=== PATIENT | male | born 1990 | race Caucasian/White ===

== ENCOUNTER 2021-07-26 09:23 | Outpatient (RCR) | payer BC, SELFPAY ==
--- NOTE | 2021-07-26 09:00 | BH.SGPN.GN ---
Behaviors/Verbalizations/Mental Status: []Client alert and oriented, neatly dressed and groomed. Eye contact good. Motor activity appropriate. Speech within normal limits. Affect congruent, mood anxious. Thoughts linear, logical, no signs of hallucinations or delusions. Reviewed client?s symptom tracker, no risk for suicidal ideation, plan, or intent as of 07/26/21 Client Response/Progress/Benefit: []Client responded well to session, attentive and receptive to feedback. Client's first day of IOP tx and he reports feeling overwhelmed this morning. Client stated I want to do well here but I'm nervous...just trying to take it all in. Client shared he came to IOP tx because of his anxiety and depression. Client reports he has been struggling at home, work, and in his relationships. Client stated I have so many good things in life, so there's no reason to feel this way. [employer] and peers helped combat stigma and offered emotional support. Client reports he would like to reduce his racing thoughts and gain healthy coping skills. Appeared to benefit from group support. Will continue IOP tx to prevent decompensation, gain healthy coping skills, and improve daily functioning. Narrative Note: []
--- NOTE | 2021-07-26 09:30 | BH.COMM_ITS ---
Communication Note - Communication with Client Communication Note: Met with patient to complete initial paperwork. No sig nificant changes since pre-admission assessment. Completed [place] Suicide screening with low risk. Discussed case and symptoms with Dr. Acevedo with plan to admit to IOP level of care with dx of MDD F33.2 and ALLEGRA F41.1
--- NOTE | 2021-07-26 10:10 | BH.SGPN.GN ---
Behaviors/Verbalizations/Mental Status: [] Eye contact is good. Motor activity is appropriate. Appearance is casual. Speech is Appropriate. Mood is anxious. Affect is congruent. Thoughts are linear and logical. No evidence of psychosis. Client Response/Progress/Benefit: [] Pt was an active participant in group discussion and activity. Attentive during psychoeducation. Provided appropriate feedback. Group had an interactive discussion on defining pitfalls in the context of mental health. Group agreed with definition of events that impact progress or things that get you off track. Pt along with peers identified common mental health pitfalls which included; past experiences, current/past environments, poor communication, anxiety, any type of conflict, and feeling discomfort. Pt was able to identify the pitfalls and challenges that occurred during the experiential activity and worked with peers to identify strategies to overcome pitfalls. Able to make parallels between activity and ways to identify strategies to overcome pitfalls in real-life situations. Benefited from increased awareness of identifying and developing strategies to overcome pitfalls in mental health. Will continue in IOP to prevent decompensation, increase healthy coping, and improve functioning to return to work. Narrative Note: []
--- NOTE | 2021-07-26 10:12 | BH.SGPN.GN ---
Behaviors/Verbalizations/Mental Status: []Client alert and oriented, casually dressed and groomed. Eye contact good. Motor activity appropriate. Speech within normal limits. Affect constricted, mood anxious. Thoughts linear, logical, no signs of hallucinations or delusions Client Response/Progress/Benefit: []Client first day in IOP program. He was receptive of session, engaged throughout AEB client actively listening, taking notes, and at times contributing to discussion. Client completed worksheet identifying personal pitfalls impacting mental health progress. Client identified the following pitfalls: lack of motivation, anxiety, inability to communicate feelings, fear of failure, and comparing current self to past self. Group brainstormed different coping skills to help manage pitfalls. Client selected ?lack of motivation? as the pitfall client wants to overcome. Client plans to work on this by slowing down, taking things one task at a time, and beginning to keep a ?credit? journal or accomplishments log. Benefited from identifying personal pitfalls and strategies to overcome these pitfalls. Will continue IOP tx to improve healthy socialization and develop more supports, reduce negative self-talk, begin improving anxiety management skills. Narrative Note: []
--- NOTE | 2021-07-31 09:00 | BH.SGPN.GN ---
Behaviors/Verbalizations/Mental Status: []Client alert and oriented, neatly dressed and groomed. Eye contact good. Motor activity appropriate. Speech within normal limits. Affect constricted, mood anxious and depressed. Thoughts linear, logical, no signs of hallucinations or delusions. Reviewed client?s symptom tracker, no risk for suicidal ideation, plan, or intent as of 07/31/21 Client Response/Progress/Benefit: []Client responded well to session, attentive and receptive to feedback. Client reports feeling hopeful and anxious this morning. Client stated the weekend went pretty well as he and his got to relax at home. Client shared he had some anxious thoughts about all that needed done but he was able to challenge these thoughts and enjoy relaxing. Client reported he had a dream on Friday that really bothered me and he talked to his about the dream which helped. Client expressed that he continues to worry about his ability to manage his anxiety and get better. The group offered emotional support and helped client reframe thinking. Appeared to benefit from connecting with peers and reflecting on wins from the weekend. Will continue IOP tx to prevent decompensation, reduce anxious thought patterns, and improve functioning. Narrative Note: []
--- NOTE | 2021-07-31 11:10 | BH.SGPN.GN ---
Behaviors/Verbalizations/Mental Status: [] Eye contact is good. Motor activity is appropriate. Appearance is neat. Speech is Appropriate. Mood is anxious. Affect is congruent. Thoughts are linear and logical. No evidence of psychosis. Client Response/Progress/Benefit: [] Pt was an active participant in group discussion and activity. Attentive during psychoeducation. Provided appropriate feedback and insight. Pt identified obstacle that has prevented him from obtaining desired reality being unrealistic expectations of himself. Identified strategies to promote emotional wellness and overcome obstacles of unrealistic expectations which included; allowing myself to be OK with current reality writing down tasks, use strategies to calm when overwhelmed. Benefited from identifying obstacles in pt's path to mental wellness and developing strategies t minimize the impact of these obstacles. Will continue in IOP to prevent decompensation, increase healthy coping, and improve functioning to return to work. Narrative Note: []
--- NOTE | 2021-07-31 14:03 | BH.MDN_ITS ---
Multi-Disciplinary Note - Note 60-min Individual Time Started:: 10:20 Date: 07/31/21 Purpose of session/treatment goals addressed:: To gather information on client's current stressors, symptoms, triggers, and tx goals. Another goal was to build rapport and provide emotional support. Eye Contact:: Fair Motor Activity:: Restless Appearance:: Neat Speech:: Rambling Mood:: Anxious, Depressed Affect:: Congruent - tearful Thoughts:: Racing, Other - intrusive thinking and ruminations Staff Interventions:: psychoeducation on:, CBT techniques, rapport building, strengths perspective, treatment planning, goal setting Client Response:: Client responded well to session, open to meeting with therapist. Client stated he has been enjoying IOP so far and that getting mental health help is new for client. Client identified treatment goals as learning to control, accept, and cope with anxiety and depression, learn about his diagnosis, and challenge negative thinking patterns. Client reports his biggest goal is to understand my thoughts and why I have them. Client expressed concern that he had bipolar disorder because of family history, but from the symptoms client was describing, client does not appear to meet criteria for bi polar disorder. Client shared about his triggers, stressors, and current symptoms. Client reports belief he has been depressed or down at least once a year for the past 4 out of 5 years. However, client feels that his anxiety and constant worry is new. Triggers include becoming a father in the past 8 months, working from home because of COVID, and not having as many social outlets. Client shared he has not been running, exercising, or playing video games like he used to. Client describes constant anxiety, ruminations, and intrusive thoughts. Client stated he worries he will eventually push his away if he cannot learn to manage his symptoms. Client connects with OCD traits and shared he does things a certain way and he feels anxious and uncomfortable if things are messy or off routine. Client shared I feel that what can be controlled should be to have a simple life. Client stated having an 8-month-old makes it very hard to stick with a routine. Client receptive to discussion of maintenance cycles and intrusive thinking. Normalized automatic thinking and why thoughts get sticky. Client receptive to emotional support from therapist and to read chapters for homework. Risks/Concerns:: Client denies any active suicidal ideations, plan, or intent as of 07/31/21. Denies any homicidal ideations. Progress Toward Goals/Plan:: Client started IOP last week and appears to be responding well to tx. Client shared he finds it helpful to learn from others, but he also feels guilty for having some privileges that others do not have. C staci identified tx goals and was receptive to homework provided by therapist. Client currently endorses a depressed mood, anhedonia, negative thoughts of self, intrusive thoughts, ruminations, and constant anxiety. Client has been unable to work because of his mental health symptoms and client worries how his mental health will impact his marriage if he does not get better. Client will continue IOP tx to prevent decompensation, gain healthy coping skills to manage anxiety, and improve daily functioning. Time Stopped:: 11:15
--- NOTE | 2021-07-31 14:30 | BH.PSA_ITS ---
Source of Information - Presenting Problems/Circumstances Problems, Referral Source, Mental Status, Client: Client is a 31-year-old male with a history of MDD and ALLEGRA. Client was referred to [facility] by his PCP due to worsening symptoms of anxiety which has been impacting client's functioning. Client has been off work since 06/19/21 with limited progress. Client currently endorses significant racing thoughts that are overwhelming and debilitating. Client reports all I think about is what needs to be done. Client reports worsening symptoms within the past four weeks without a specific trigger. Additionally, client endorses increased sleep, poor appetite, low energy, low motivation, anhedonia, isolative behaviors, restlessness, no interest in hobbies, passive thoughts of , and self-deprecation. Client's symptoms currently impacting his social, occupational, and familial functioning. 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 No suicide attempts ever. Client reports he had counseling last year about every other week for 6 sessions and it was somewhat helpful. Client first took psych medications on June 19, 2021 and has never taken any other psych medications. Per client's report, he first had severe anxiety in 2017 at age 27 but he has always had anxious tendencies. He was first depressed in 11th grade around age 19. First hospitalization:: n/a Most recent hospitalization:: n/a Medication Trials:: No ECT Therapy:: No Age of first mental health symptoms: See treatment history Describe (age, circumstance, etc) any past hospitalizations: No history of hospitalizations Current providers for mental health treatment (counselor, psychiatrist, case investigator, etc.): No current mental health providers Development & Family of Origin - Childhood Significant Childhood Events: Client describes his childhood as fantastic. - Family Who currently lives in your home?: Client lives with his and their 8 month old daughter in [place]. Describe family composition:: Client was born and raised in [place] and describes his childhood as fantastic. Client's parents were and are and loving. Client is the middle child with a brother 4 years older and a sister 3 years younger than him. client is close to his siblings and he describes his father as his best friend. He denies any verbal, physical or sexual abuse ever. Client was at age 28 and he describes the marriage as really good. Client and his have a daughter who is 8 months. - Family History Family Hx of Psychiatric or AOD Problems: Client's mother has a history of depression after her cancer diagnosis and takes Lexapro. Client has a maternal uncle who is bipolar. Client has a maternal aunt with depression and anxiety. Client has a maternal grandfather and maternal uncle who are alcoholics. Ethnicity - Culture Do you identify yourself with any particular cultural, ethnic background, or community?: No - Sexuality Sexual Orientation: Heterosexual Mental Status - Memory Recent Memory: Good Remote Memory: Good - Concentration Concentration: Fair - Eye Contact Eye Contact: Stares - Speech Speech: Rapid, Repetitious, Circumstantial - Thought Process Thought Process: Obsessions, Ruminations Insight: Fair Judgment: Fair Behavior: Anxious - Orientation Orientation: Time, Person, Place, Situation - Appearance Appearance: Appropriate - Mood Mood: Anxious, Depressed - Affect Affect: Constricted Suicide Assessment - Suicidal Ideation Have you ever felt like hurting yourself?: Yes Were you using ETOH/drugs at the time?: No Suicidal Intentional Rating Scale (SIRS): Current suicidal thoughts/No plan/Contracts for safety - He admits to passive thoughts that he would not care if he and some passive suicidal ideation. He denies active suicidal ideation. Physician Notification: If Active suicidal thoughts/Will not contract for safety is checked, contact physician and document in the Physician Notification section below. Violent Behavior/Abuse History - Homicidal Ideation Do you have any homicidal thoughts? If so, explain:: No Is there a known potential victim? If yes, who:: No - Abuse Have you ever been abused?: No - Life Events Are there any other significant life events?: Hardships, Family illness Describe significant life events: Client's mother was diagnosed with ovarian cancer in 2020 which was stage I. Client and his had their first child earlier this year which has been a stressor. The COVID pandemic and being off of work due to mental health are stressors as well. - Safety Do you ever feel threatened in your home? If yes, describe:: No Adult Social History - Age 20 to Present Describe your current support system:: Client has his , parents, and siblings for support. Substance Use - Substance Substance Use Type: Alcohol, Caffeine - Specific Drugs What specific drugs have you used?: Non-smoker. No vaping. No marijuana use. No drug use. No rehab ever. He uses alcohol socially only and he has rarely used it in the past 8 months since his daughter was born. Leisure/Social Activities - Interests What do you enjoy or might be interested in learning about?: Client used to enjoy running and exercise, video games, and sports. Education & Occupational Histo - Education What is your level of education?: Associate Degree - He received 2 associates degrees in the arts and sciences from [employer]. Client ruminates about not getting his Bachelors degree. 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 He has been on FMLA since June 19, 2021 because of his mental health symptoms he is unable to function well at work or at home. Service - Service Have you ever been in the ?: No Legal History - Records Have you had any past legal charges?: No Do you have any current legal charges?: No Have you ever been incarcerated? If yes, describe:: No - Court Orders Have you had any past court orders for psychiatric treatment?: No Do you have a present court order for psychiatric treatment?: No Problem Checklist - Current Problem Areas Problem List: Nutritional/Eating pattern changes, Depressed mood/sad, Anxiety, Inattention, Sleep problems - increased sleep and lack of energy, Additional psychosocial stressors Medical Pathologist's Assessment - Client's Needs What are the client's strengths?: Client has support from his family and . Client is intelligent and hard-working. Diagnoses - Diagnoses Diagnosis #1:: MDD, recurrent, severe, without psychosis F 33.2 Diagnosis #2:: ALLEGRA Interpretive Summary - Interpretive Summary Interpretive Summary: Client is a 31-year-old male with a history of depression and anxiety who was referred to the [facility] by his primary care doctor. Client went to [facility] emergency room in [facility] on July 07, 2021 with feelings of panic and pas sive suicidal ideation, but he was not admitted to psychiatry at that time. 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 He has been on FMLA since June 19, 2021 because of his mental health symptoms impacting his ability to work and function. Client currently lives with his and 8-month-old infant daughter. Client has been for 2-1/2 years and describes his marriage as great and shares that his is very supportive and she also works full-time. Client reports his anxiety has increased in recent months and he feels it may have worsened when he and his started sending their daughter to daycare. Client endorses ruminations and obsessions, sharing he focuses on all these things that need to be done in order for him to provide effectively for his and daughter. He feels that he is not a good enough provider and he feels that I am a failure and and he feels that he did not achieve enough in life. Client ruminates negatively about himself and has intrusive thoughts that are all extremely self-critical. Additionally, client berates himself for having only 2 associate degrees instead of a bachelor's degree. Client reports belief that he is his should not have to work after having a baby and he does not like the baby being in daycare. Client?s mother was diagnosed with ovarian cancer in 2019 and client?s job also changed about 3 months ago and this has added stress to his life. In addition the infant daughter has had numerous ear infections and this has been stressful for him. Client has low motivation and depressed and sad mood with crying. Client endorses anhedonia, low energy, decreased concentration, worthlessness, decreased appetite (lost 15 pounds in the past 10 months), and he wants to sleep all the time. Client endorses excessive guilty that he is not a better person. Client admits to passive thoughts that he would not care if he and some passive suicidal ideation. He denies active suicidal ideation. He denies plan for suicide, homicidal ideation, hallucinations, delusions or symptoms of kait ever. Client denies any history of self-harm and he has no access to guns. For primary support he has his , mother or sister. He does have intrusive thoughts, but they are all self-deprecatory. Client denies intrusive ego dystonic thoughts. He denies any rituals. He does admit to being ?particular? about certain chores and organization at home, but this does not reach or meet criteria for OCD. Client denies outright panic attack but states that he does get very anxious and paces and clenches his fists and has some racing thoughts and worry but not outright panic attacks. Client denies eating disorder, trauma, PTSD, history of self-harm, history of seizure or head trauma. Client denies any substance abuse. Family history of depression, anxiety, alcoholism, and bipolar disorder. Denies history of trauma. Treatment Plan Recommendations - Recommendations Guidelines: Special needs identified to be included in the development of an individualized treatment plan regarding past psychiatric history and treatment, developmental events, family relationships/events/culture, past and/or current educational, occupational, social, and residential experience, and legal status. Recommendations:: Client will start the IOP program in behavioral health at [facility] as the structure, support, education and group therapy will hopefully prevent worsening of client's symptoms which might require hospitalization. He felt safe during the interview and if it anytime he does not feel safe he will let us know or go to the emergency room. The risk, options and possible complications of the medications were discussed between client and [facility] psychiatrist. [facility] psychiatrist and therapist encouraged client to start exercising in some way since he used to really enjoy running track and cross-country and he maintained running until the past 3 months or so. Client was started on Lexapro and will let [facility] staff know if he has any issues. Client also does not have outpatient mental health providers and will need to be linked before discharge.
--- NOTE | 2021-07-31 14:30 | BH.MTP ---
Master Treatment Plan - Patient Information Program Physician:: Dr. Karma Padron Primary Therapist:: Holly GILBERT - Psychiatric Diagnoses Psychiatric Diagnoses:: Major depressive disorder, recurrent, severe without psychosis F 33.2; Generalized anxiety disorder Diagnosis Code(s):: F 33.2 - Estimated LOS Estimated LOS (in weeks):: 6 Problem/Goal #1 - Problem/Goal #1 Stated Goal:: Client will reduce depressive symptoms, anhedonia, and feeling like a burden due to major depressive disorder while increasing self-worth. Description of Barriers: Client has all or nothing expectations for himself as a father, , and worker that lead to client feeling like a burden if he does not meet this expectations. Client admits to perfectionistic tendencies which could be a barrier to treatment. Functional Impact: Client is a 31-year-old male with a history of MDD and ALLEGRA. Client was referred to [facility] by his PCP due to worsening symptoms of anxiety which has been impacting client's functioning. Client has been off work since 06/19/21 with limited progress. Client currently endorses significant racing thoughts that are overwhelming and debilitating. Client reports all I think about is what needs to be done. Client reports worsening symptoms within the past four weeks without a specific trigger. Additionally, client endorses increased sleep, poor appetite, low energy, low motivation, anhedonia, isolative behaviors, restlessness, no interest in hobbies, passive thoughts of , and self-deprecation. Client's symptoms currently impacting his social, occupational, and familial functioning. Goal Relevant Strengths/Supports: Client has support from his family and . Client is intelligent and hard-working. - Objectives Objective #1 Stated Objective: Client will identify at least 2-3 negative self-talk messages used to reinforce negative core beliefs and replace thoughts with positive, realistic messages. Interventions: Therapist will help client identify distorted, negative beliefs about self and replace with more realistic, affirmative messages. Therapist will use CBT to help client increase insight to the connection between thoughts, emotions, and behaviors. Therapist will also use dialectical thinking to help client combat all or nothing expectations. Therapist will encourage client to practice thought challenging. Discharge Criteria: Client will have achieved this goal when can verbalize at least 2 negative self-talk messages and effectively replace those thoughts with affirmative messages. Target Date: 09/06/21 Review Date: 08/23/21 Status: open Objective #2 Stated Objective: Client will learn and utilize 2-3 healthy coping strategies to better manage depressive symptoms as shown by a reduced DSM-5 scores for depression. Interventions: Through group and individual sessions, therapist will help client identify triggers and warning signs of depression and emotional dysregulation including emotional, physical, and behavioral changes. Therapist will teach client various coping skills to manage her symptoms and give client tangible resources to use to regulate emotions. Therapist will use cognitive restructuring techniques and help client gain awareness of negative thoughts that reinforce guilt and depression. Therapist will provide psychoeducation on maintenance cycles and help client learn ways to break unhealthy maintenance cycles. Therapist will help client incorporate behavioral activation and assist client in setting SMART goals. Discharge Criteria: Client will have met this goal when he can report learning and using at least 2 coping skills to manage depressive symptoms. Additionally, client will have met this goal when his depressive symptoms have reduced on the DSM-5 scale. Target Date: 09/06/21 Review Date: 08/23/21 Status: open Problem/Goal #2 - Problem/Goal #2 Stated Goal:: Client will reduce anxiety, excessicve worries, and feelings of panic while increasing ability to function on daily basis. Description of Barriers: Client has all or nothing expectations for himself as a father, , and worker that lead to client feeling like a burden if he does not meet this expectations. Client admits to perfectionistic tendencies which could be a barrier to treatment. Functional Impact: Client is a 31-year-old male with a history of MDD and ALLEGRA. Client was referred to [facility] by his PCP due to worsening symptoms of anxiety which has been impacting client's functioning. Client has been off work since 06/19/21 with limited progress. Client currently endorses significant racing thoughts that are overwhelming and debilitating. Client reports all I think about is what needs to be done. Client reports worsening symptoms within the past four weeks without a specific trigger. Additionally, client endorses increased sleep, poor appetite, low energy, low motivation, anhedonia, isolative behaviors, restlessness, no interest in hobbies, passive thoughts of , and self-deprecation. Client's symptoms currently impacting his social, occupational, and familial functioning. Goal Relevant Strengths/Supports: Client has support from his family and . Client is intelligent and hard-working. - Objectives Objective #1 Stated Objective: Client will identify 2-3 anxiety/panic triggers and 2 coping skills to use when feeling anxious to manage anxiety as shown by decreasing her DSM-5 scores for anxiety. Interventions: Therapist will provide education on anxiety, avoidance behaviors, and maintenance cycles. Therapist will help client explore personal symptoms and warning signs of anxiety. Therapist will teach client coping skills to improve emotional regulation, mindfulness, and distress tolerance to help client cope with anxiety in the moment. Discharge Criteria: Client will have accomplished this goal when he can identify at least 2 triggers and report using 2 coping skills to manage anxiety. Additionally, client will have accomplished this goal when his DSM-5 scores show a reduction for anxiety. Target Date: 09/06/21 Review Date: 08/23/21 Status: open Objective #2 Stated Objective: Client will identify 2-3 cognitive distortions that lead to rumination and learn 2-3 ways to manage these thoughts to better manage anxiety. Interventions: Therapist will provide education on the most common cognitive distortions and teach client the connection between thoughts, emotions, and feelings. Therapist will assist client in identifying, challenging, and replacing dysfunctional thoughts with positive, more realistic thoughts. Therapist will use CBT and DBT techniques to help client gain awareness of thinking errors and learn how to more effectively handle negative thoughts. Therapist will also use self-compassion to help client set more realistic expectations for himself. Discharge Criteria: Client will have accomplished this goal when can identify at least 2 cognitive distortions and at least 2 coping skills to manage negative thoughts. Target Date: 09/06/21 Review Date: 08/23/21 Status: open
--- NOTE | 2021-08-01 10:10 | BH.SGPN.GN ---
Behaviors/Verbalizations/Mental Status: []Client alert and oriented, casually dressed and groomed. Eye contact fair. Motor activity appropriate. Speech within normal limits. Affect congruent, mood anxious. Thoughts linear, logical, no signs of hallucinations or delusions. Client Response/Progress/Benefit: []Client responded well to session AEB client contributing to session and attentively listening to others. Client connected with the topic of perspective and discussed seeing negative things first due to anxiety lens focusing on fear of failure and worry. Discussed habitually viewing himself negatively and working toward a more positive perspective. Client attentively listened to others sharing their observations of the photo activity. Progress noted AEB client?s engagement in session. Will continue IOP treatment to increase anxiety management skills to increase daily functioning. Narrative Note: []
--- NOTE | 2021-08-01 10:10 | BH.NA ---
Physical Data - Vital Signs Pulse Rate: 67 Blood Pressure: 124/81 - Height/Weight Height: 1.68 m Weight:: 63.503 kg Weight in Pounds: 140.0 lbs Current Medication Compliance - Medication Compliance Do you take your medication as prescribed?: No - client states inconsistent compliance with Lexapro Nutritional History - Appetite Nutritional Instructions:: If client shows signs of a swallowing problem, weight change of 10 pounds or more in the last month, or is on a diabetic diet, the physician will review and request a dietitian consult, as appropriate. All unintentional weight loss will be referred to the physician for decision on need for dietitian consult. Describe your appetite:: Fair Have you noticed a change in your eating habits lately?: Yes Additional nutritional information:: Client states he has noticed a decrease in his appetite. Client states since September 2020, he has lost 15lbs. Functional Assessment - Sleep Pattern Describe any problems with sleeping: Client reports poor sleep, reporting a lot of waking during the night. Client does have an 8 month old daughter that wakes up at night but states he wakes up even on nights the baby does not. Client states he sleeps about 4-5 hours per night and does not feel restful in the AM. - Activities Motor Activity:: Functional Sensory/Communication Assess - Communication Problems Do you have difficulty understanding what people are saying?: No Medical Problems/History - Respiratory Conditions Respiratory: Asthma - states history of asthma as a kid but has not used medication since middle school - Pain Assessment Do you have acute or chronic pain?: No Surgical History - Surgical History Have you had any surgeries? If so, list type and date:: Yes - wisdom teeth, hernia repair, adenoids removed, ear drums drained Substance Abuse - Substance Abuse Please describe substance abuse in the last 30 days:: Client reports very infrequent alcohol use socially. Client denies tobacco or substance use. Mental Status Summary - Mental Status Significant Findings/Observations on Appearance and Mood:: Client is alert and oriented x 4. Client is casually dressed with good hygiene. Client makes good eye contact. Client is wearing a mask due to the pandemic. Client's voice has normal rate and volume. Client has appropriate affect. Client makes logical associations and has normal processing. Client denies delusions/hallucinations. Client states he does have passive SI at times with no intent or plan. Suicide Assessment - Suicidal Ideation Are you currently or have you been suicidal in the past?: Yes - reports passive fleeting SI with no plan/intent Suicidal Intentional Rating Scale (SIRS): Current suicidal thoughts/No plan/Contracts for safety Physician Notification: If Active suicidal thoughts/Will not contract for safety is checked, contact physician and document in the Physician Notification section below. Assault History/Potential - History of Assault Do you have a history of assaulting someone?: No Physician Notification: If yes, notify physician and document notification date and time below. Past Psychiatric History - MH Treatment Hx Past Psychiatric Medications:: Only Lexapro that he was prescribed in June 2021 Age of first mental health symptoms: Client states he first started having yearly depressive episodes about 4 years ago, stating this episode is the darkest one he has ever had. Describe (age, circumstance, etc) any past hospitalizations: None. Current providers for mental health treatment (counselor, psychiatrist, pillowcase cleaner, etc.): None. Fall Risk Assessment - Age Age: Less than 60 - Mental Status Mental Status: Willing & able to ask for assistance when needed - Physical Status Physical Status: No problems - Impairments Impairments: None - Elimination Elimination: Continent AND independent - Gait or Balance Gait or Balance: Walks independently - Hx of Falls History of falls in the past 6 months: No known history - Medications/Substances Psychotropics:: Antidepressants Medications/substances used within the past 24 hours or ordered to administer: 1-2 of the medications/substances listed above - Total Score Total Points:: 1 RN Summary of Impressions - Level of Care How do the client's current symptoms and functional deficits support need for this level of care?: Client was referred to IOP by PCP for increasing anxiety and depression. Client states for the past couple of months, his anxiety has been increased and he has been having darker thoughts than I ever have before. Client states he started taking Lexapro in early June but has not been consistent with compliance. Client states he has noted he has had depressive episodes yearly for the past 4 years, but states this year he has had some passive suicidal thoughts, maybe my and daughter would be better off without me and he has not had those thoughts before. Client denies plan or intent. Client also reports guilt after being off work for mental health about burden falling to his for income. Client reports a decrease in motivation, decrease in interest in activities he usually enjoys, racing thoughts, ruminations and isolation. IOP will promote gains and prevent further decompensation while providing social support and skills training.
[2021-08-01 10:42] VITALS: BP 124/81; PULSE 67
--- NOTE | 2021-08-01 11:10 | BH.SGPN.GN ---
Behaviors/Verbalizations/Mental Status: []Client alert and oriented, neatly dressed and groomed. Eye contact fair. Motor activity appropriate. Speech within normal limits, quiet. Affect constricted, mood anxious and depressed. Thoughts linear, logical, no signs of hallucinations or delusions. Client Response/Progress/Benefit: []Pt did well to remain attentive throughout session, AEB providing input throughout discussion. Did well to take notes and complete worksheet provided. Engaged as group reviewed the importance of taking a strengths-based approach in order to foster a healthier perspective and better manage mental health symptoms. Completed strengths exploration worksheet and identified personal strengths to include: patience, athleticism, and being competitive. Pt reports he has not been using his strengths lately because he has been so depressed. Pt stated he is patient with others, but he is not able to be patient with himself right now. Benefited from identifying personal strengths and strategies for enhancing use of identified strengths. Pt to continue IOP tx to prevent decompensation, gain healthy coping skills, and improve overall functioning. Narrative Note: []
--- NOTE | 2021-08-01 12:50 | BH.PSY.EVA_ITS ---
Psychiatric Evaluation Initial Evaluation Initial Evaluation: History of Present Illness: [] The patient is a 31-year-old male with a history of depression and anxiety who was referred to the [facility] intensive outpatient program in behavioral health by his primary care doctor. The patient went to [facility] emergency room in [facility] on July 07, 2021 with feelings of panic and passive suicidal ideation. He was not admitted to psychiatry at that time. 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 He has been on FMLA since June 19, 2021 because of his mental health symptoms he is unable to function well at work or at home. He currently lives with his and 8-month-old infant daughter. He has been for 2-1/2 years and describes his marriage as great. His is very supportive and she also works full- time. His anxiety has increased in recent months and he feels it may have worsened when his to daycare. He says he focuses on all these things that need to be done in order for him to provide effectively for his and daughter. He feels that he is not a good enough provider and he feels that I am a failure and and he feels that he did not achieve enough in life. He ruminates negatively about himself and has intrusive thoughts that are all extremely self-critical. He berates himself for having only 2 associate degrees instead of a bachelor's degree. He feels that he is his should not have to work after having a baby and he does not like the baby being in daycare. His job also changed about 3 months ago and this has added stress to his life. The baby went back to daycare end of March 2021. In addition the infant daughter has had numerous ear infections and this has been stressful for him. He has low motivation and depressed and sad mood with crying. He endorses anhedonia, worthlessness, decreased appetite (lost 15 pounds in the past 10 months). He sleeps okay overall but he tosses and turns during the night and does not feel very rested. He wants to sleep all the time. He has mostly low energy and decreased concentration. He feels guilty he is not a better person. He admits to passive thoughts that he would not care if he and some passive suicidal ideation. He denies active suicidal ideation. He denies plan for suicide, homicidal ideation, hallucinations, delusions or symptoms of kait ever. He denies any history of self-harm and he has no access to guns. For primary support he has his , mother or sister. He does have intrusive thoughts but they are all self deprecatory. He denies intrusive ego dystonic thoughts. He denies any rituals. He does have a preference for tiles being folded a certain way but this does not reach or meet criteria for OCD. He denies outright panic attack but states that he does get very anxious and paces and clenches his fists and has some racing thoughts and worry but not outright panic attacks. He denies OCD, eating disorder, trauma, PTSD, history of self-harm, history of seizure or head trauma. Another stressor was the patient's mother being diagnosed with ovarian cancer in 2019 which was stage I. Current Psychiatric Medications: [] Lexapro 10 mg p.o. daily; the patient says he took it daily starting on June 19 for 2-1/2 weeks but he has only taken it for 3 days in the last 2 weeks. Past Psychiatric History: [] No psychiatric admissions. No suicide attempts ever. He had counseling last year about every other week for 6 sessions and it was somewhat helpful. He first took psych medications on June 19, 2021 and has never taken any other psych medications. He first had severe anxiety in 2016 at age 27 but he has always had anxious tendencies. He was first depressed in 11th grade around age 19. He drinks coffee in the morning only. Substance Use History: [] Non-smoker. No vaping. No marijuana use. No drug use. No rehab ever. He uses alcohol socially only and he has rarely used it in the past 8 months since his daughter was born. Allergies: [] No known allergies Medications: [] Lexapro and Zyrtec for seasonal allergies. Past Medical History: [] Asthma as a child which has resolved as an adult. He had an abdominal hernia repair, eardrum drained and adenoids removed. No other surgeries or medical issues. Normal sexual function. Family Psychiatric History: [] The patient's mother is 59 and has diabetes and was diagnosed with ovarian cancer in 2019 which was stage I. She has finished treatment. His father is age 60 and has high blood pressure. His mother has a history of depression after her cancer diagnosis and takes Lexapro. He has a maternal uncle who is bipolar. He has a maternal aunt with depression and anxiety. He has a maternal grandfather and maternal uncle who are alcoholics. No completed suicides in the family. Personal/Social History: [] Patient was born and raised in [place] and describes his childhood as fantastic. His parents were and are and loving. He is the middle child with a brother 4 years older and a sister 3 years younger than him. He is close to his siblings. He denies any verbal, physical or sexual abuse ever. He excelled in school and graduated high school with a 3.98 grade point average. He was good at sports and was able to run track and cross-country in college at [employer]. He later transferred to [employer]. He received 2 associates degrees in the arts and sciences and had changes majors several times so never got a formal bachelor's degree and berates himself for this. He at age 28 and describes his marriage is great. His is 26 years old and she works full-time in public health as a public health securities supervisor. There is no abuse in their marriage and she is very supportive. Legal History: [] No arrests. Has interstate bus driver's license. No DUIs. Review of Systems: [] Negative except as noted in present illness. Vital Signs: [] Reviewed in nurses notes. Mental Status Examination: [] The patient is a 31-year-old male who is seen wearing a mask due to the pandemic and appears younger than his stated age and is casually dressed and groomed with good hygiene. He has no psychomotor agitation or retardation and is cooperative during the interview. Eye contact is good and speech is normal rate and rhythm and fluent with no pressure. Mood is depressed. Affect is constricted and tearful at times. Thought process is goal-directed and organized. Thought content: There is evidence of passive thoughts of and passive suicidal ideation in the recent past. There is no evidence of plan for suicide, active suicidal ideation, homicidal ideation, hallucinations, delusions or symptoms of kait. Reality testing is intact. Intelligence is above average. Judgment is intact. Insight is limited. Diagnoses: [] 1. Major depressive disorder, recurrent, severe without psychosis 2. Generalized anxiety disorder 3. Primary support, work issues Plan: [] The patient will start the IOP program in behavioral health at [facility] as the structure, support, education and group therapy will hopefully prevent worsening of the patient's symptoms which might require hospitalization. He felt safe during the interview and if it anytime he does not feel safe he will let us know or go to the emergency room. The risk, options and possible complications of the medications were discussed with the p atient and he understands and accepts these. The patient agrees to try to to start exercising in some way since he used to really enjoy running track and cross-country and he maintained running until the past 3 months or so. The patient agrees to restart his Lexapro since he has it at home rather than start a new medication. He refuses Remeron which might help his appetite and sleep. He agrees to take Lexapro 10 mg p.o. daily for 1 week and then to increase to 20 mg p.o. daily. He will let us know if he has any problems or side effects on this. I will see the patient in follow-up in 1 to 2 weeks.
--- NOTE | 2021-08-01 13:07 | BH.DR.ITP ---
Initial Treatment Plan Patient Information Visit Information: ADMISSION DATE: EXPECTED LOS: 4-6 weeks Problems/Symptoms Problem #1:: Depression Symptom:: Sadness, anhedonia, biological disruption of appetite, biological disruption of sleep, decreased concentration, guilt, worthlessness, passive thoughts of , recent history of passive suicidal ideation Problem #2:: Anxiety Symptom:: Worry, rumination, feelings of panic
--- NOTE | 2021-08-02 10:35 | BH.COMM ---
Communication Note - Communication with Client Communication Note: Pt cancelled due to his daughter being ill and needing to stay home from daycare. Pt plans to attend IOP on Friday08/06/21.
--- NOTE | 2021-08-07 09:05 | BH.SGPN.GN ---
Behaviors/Verbalizations/Mental Status: [] Eye contact is good. Motor activity is appropriate. Appearance is casual. Speech is Appropriate. Mood is anxious. Affect is congruent. Thoughts are linear and logical. No evidence of psychosis. Reviewed daily check in sheet and pt reports 1/5 for suicidal thoughts and 0/5 for intent. This is baseline. Client Response/Progress/Benefit: [] Pt was an active participant in group discussion. Attentive. Provided appropriate feedback. Daily symptom tracker notes 3/5 for anxiety and depression. Emotion for today is hopeful and encourage. States Lots of constructive things occurred. Was presented with numerous stressors and anxiety producing situations since last week stating it was trial by fire. He talked at length regarding the stressful events and the negative automatic thoughts that he experienced. He was able to reframe several thoughts and negative events and work through his anxiety. He participated in several experiences that in the past he would have skipped due to ruminating on completing tasks or burdening his . Despite the triggers reports increased confidence in his ability to manger anxiety producing situations. He also noted that he continues to struggle with internal motivation to complete tasks which he perseverates on. Progress noted per pt report. Benefited from group support, encouragement, and feedback. Will continue in IOP to prevent decompensation, decrease intrusive thoughts, and improve functioning to return to work. Narrative Note: []
--- NOTE | 2021-08-07 10:15 | BH.SGPN.GN ---
Behaviors/Verbalizations/Mental Status: []Eye contact is good. Motor activity is appropriate. Appearance is casual. Speech is rapid and rambling. Mood is anxious. Affect is congruent. Thoughts are linear and logical. No evidence of psychosis. Client Response/Progress/Benefit: []Pt was an engaged participant in group discussions. Attentive and provided insights during psychoeducation on benefits and disadvantages of anxiety and review of different types of anxiety disorders. Completed worksheet on identifying own physical symptoms or signs of anxiety which pt reported numerous however identified most frequent as: headaches, light-headedness, increased heart rate, and feeling tense. Pt shared he has learned that a lot of his anxiety and fear comes from disorganization or changes in routine. Benefited from increased awareness of physiological signs of anxiety as well as differences between 'normal' anxiety and anxiety disorder. Will continue IOP tx to reduce anxious thought patterns, increase self-compassion, and improve daily functioning. Narrative Note: []
--- NOTE | 2021-08-07 11:15 | BH.SGPN.GN ---
Behaviors/Verbalizations/Mental Status: []Client alert and oriented, casually dressed and groomed. Eye contact good. Motor activity appropriate. Speech within normal limits. Affect congruent, mood euthymic and anxious. Thoughts linear, logical, no signs of hallucinations or delusions. Client Response/Progress/Benefit: []Client was an active participant in group discussion, able to provide input and insight to discussion. At times appearing to ramble due to feeling anxious. Reviewed safety behaviors he engages in that reinforce anxiety. Some of client?s safety behaviors include: avoiding, reassurance seeking, and overthinking a situation. Attentive during psychoeducation on mindfulness coping skills and their impact on mental health wellness. The group worked together to brainstorm anxiety reduction strategies. Client selected trying to utilize positive daily affirmations as the mindfulness skill he will practice over the next three days. Client seemed to benefit from increased repertoire of anxiety reduction skills. Client will continue IOP tx to continue to reduce intensity of anxiety symptoms, improve overall functioning and reduce reassurance seeking, as well as prevent decompensation. Narrative Note: []
--- NOTE | 2021-08-08 08:42 | BH.COMM ---
Communication Note - Communication with Client Communication Note: Pt cancelled today due to illness. Plans to attend 08/13/21. Due to cancellation, pt unable to meet with individual therapist this week.
--- NOTE | 2021-08-14 09:05 | BH.SGPN.GN ---
Behaviors/Verbalizations/Mental Status: []Client alert and oriented, neatly dressed and groomed. Eye contact good. Motor activity appropriate. Speech within normal limits. Affect congruent, mood euthymic and anxious. Thoughts linear, logical, no signs of hallucinations or delusions. Reviewed client?s symptom tracker, no risk for suicidal ideation, plan, or intent as of 08/14/21 Client Response/Progress/Benefit: []Client responded well to session, attentive and engaged. Client reports feeling encouraged and apprehensive this morning. Client shared he had a a very busy week last week with numerous stressors, but client reports feeling like he got through those well using healthy coping skills. Client shared he has been doing better with going with the flow and allowing himself to relax. Client identified another mental health win as having a good conversation with his about expectations. Client is feeling anxious about an upcoming wedding, but overall he self-reports his mood and ability to function have been better. Appeared to benefit from reflecting on progress. Will continue IOP tx as client continues to struggle with challenging distorted thought patterns that reinforce depression, anxiety, and lack of motivation. Narrative Note: []
--- NOTE | 2021-08-14 14:24 | BH.MDN_ITS ---
Multi-Disciplinary Note - Note 60-min Individual Time Started:: 11:20 Date: 08/14/21 Purpose of session/treatment goals addressed:: To address tx goals #1 and #2 through identifying cognitive distortions and practicing thought challenging and reframing. Eye Contact:: Fair Motor Activity:: Restless Appearance:: Neat Speech:: Rambling, Rapid Mood:: Anxious, Dysthymic Affect:: Constricted Thoughts:: Circular, Other - ruminations, No evidence of hallucinations/delusions noted Staff Interventions:: thought challenging, CBT techniques, mindfulness skills, strengths perspective, taught coping skills, other - encouraged client to communicate insights from session with . Client Response:: Client responded well to session, open to meeting with therapist. Client reports he has been going through the motions in a positive way, but he is still struggling with managing his negative thoughts. Client is also struggling with finding the motivation to get back into exercising.Client reports when he was exercising and taking time for self-care, he felt more capable to manage daily stressors. After further exploration, client realized one of his barriers is guilt for taking time away from his , daughter, and responsibilities to do something for himself. Client stated his expectations for himself are very all or nothing as client believes he has to be perfect in his many roles. Client stated he would not expect his to be perfect, and he is often much kinder with her when she does not complete a task or is imperfect. Discussed internal thought challenging skills he can use and also how he can communicate his distortions with his . Client willing to schedule in self- care to his daily routine and also begin working on an accomplishment log to help practice self-compassion. Discussed how prioritizing self-care will help client be more resilient and improver overall functioning. Client also asked how he can prioritize better at home and was receptive to ideas from therapist. Risks/Concerns:: Client denies any suicidal ideations, plan, or intent as of 08/14/21. Still has occasional thoughts of not caring if he , but denies any suicidal ideations. Denies any homicidal ideations. Progress Toward Goals/Plan:: Client continues to make progress towards his treatment goals AEB his self-report of improved mood and application of coping skills outside of IOP. Client has been doing better with communicating with his and changing roles at home, but he continues to express significant anxiety around his all or nothing expectations of himself. Client also is still struggling with lack of motivation and lack of energy which prevents him from engaging in self-care. Will continue IOP tx to increase self-compassion, improve motivation and self-care, and improve daily functioning. Time Stopped:: 12:13
== END 2021-08-14 23:59 ==
LOC: BHIOP 09:23
PROVIDERS: PCP Nurse Practitioner Family; Referring Provider Psychiatry & Neurology Psychiatry; Visit Provider Psychiatry & Neurology Psychiatry
DX: F33.2 Major depressive disorder, recurrent severe without psychotic features (principal); F41.1 Generalized anxiety disorder; Z79.899 Other long term (current) drug therapy; Z81.8 Family history of other mental and behavioral disorders
CPT/HCPCS: S9480; 90837; 90853

== ENCOUNTER 2021-08-15 09:00 | Outpatient (RCR) | payer BC, SELFPAY ==
[2021-08-15 00:40] VITALS: BP 124/81; PULSE 67
--- NOTE | 2021-08-15 09:00 | BH.SGPN.GN ---
Behaviors/Verbalizations/Mental Status: [] Eye contact is good. Motor activity is appropriate. Appearance is neat. Speech is Appropriate. Mood is anxious. Affect is congruent. Thoughts are linear and logical. No evidence of psychosis. Reviewed daily check in sheet and no reports of suicidal ideations or intent. Client Response/Progress/Benefit: [] Pt was an active participant in group discussion. Attentive. Provided appropriate feedback. Emotion for today is anxious and worried. Reports that he struggled to get out of bed this AM related to depression/ lack of motivation, however mental health win was making it to group. He had a discussion with his support yesterday which he believes was beneficial. Had some realizations and insights regarding his desire to help and solve other's problems which is impacting his anxiety and mental health. Able to identify several cognitive distortions that he has been utilizing mind-reading and is challenging these which decreased negative thoughts and emotions. Progress noted per pt report. Benefited from group support, feedback, and encouragement. Will continue in IOP to prevent decompensation, increase healthy coping, and improve functioning to return to work. Narrative Note: []
--- NOTE | 2021-08-15 10:12 | BH.SGPN.GN ---
Behaviors/Verbalizations/Mental Status: []Eye contact is good. Motor activity is appropriate, at times restless when appearing anxious. Appearance is casual and grooming attended to. Speech is Appropriate. Mood is anxious. Affect is congruent. Thoughts are linear and logical. No evidence of psychosis Client Response/Progress/Benefit: []Pt was an engaged participant in group discussion, providing input and was attentive during psychoeducation. Participated in short activity about automatic thoughts and shared that current environment and interaction with supports and their interests can impact automatic thoughts. Group was primarily educational; therapist introduced and gave examples of the most common cognitive distortions. Benefited from education and increased awareness of cognitive distortions and the role that they play our behaviors and emotions. Pt reported connecting with distortions such as labeling, should statements, personalization, jumping to conclusions, and mental filter. Pt shared personal distortion he struggles with a lot as mental filter. Recognized the impact this distortion has had on his expectations of self and impedes ability to identify own progress. Will continue IOP tx to challenge distortions that reinforce depression and anxiety while increasing ability to function, and reducing avoidance behaviors. Narrative Note: []
--- NOTE | 2021-08-15 11:20 | BH.SGPN.GN ---
Behaviors/Verbalizations/Mental Status: []Eye contact is good. Motor activity is appropriate. Appearance is casual. Speech is Appropriate. Mood is euthymic. Affect is congruent. Thoughts are linear and logical. No evidence of psychosis. Client Response/Progress/Benefit: []Pt was an engaged participant AEB pt providing input throughout group discussion and activity. Attentive during psychoeducation on cognitive distortions not discussed in previous group. Pt was an actively engaged participant in Cognitive Distortions Jeopardy, providing input and suggestions to small group. Utilized notes from psychoeducation on cognitive distortions to assist peers in correctly answering questions. Experiential activity was beneficial as it provided a way for patient to review notes and handouts during psychoeducation to answer questions for the game. Will continue in IOP tx to improve ability to set realistic expectations, continue utilization of healthy coping skills and prevent decompensation.
--- NOTE | 2021-08-15 13:45 | PCM.BH.PN_ITS ---
Progress Note Progress Note: History of Present Illness/Interim History: [] The patient is a 31-year-old male who is seen in follow-up at the [facility] behavioral health IOP program. Patient was last seen 2 weeks ago and at that time his Lexapro dose was increased to 20 mg p.o. daily. The patient states that he has been taking the increased Lexapro dose for 1 week now. He is tolerating medication well and feels much better overall. He feels that he is learning valuable skills in the IOP program that have helped him deal with his issues. His marital issues are better and they have understand now that they and have made changes in how they react to each other statements at home. He still has some anxiety but much less than before and is not doing the pacing that he was doing before. He still wants to sleep a lot of the time and has low energy and decreased concentration. He still has passive thoughts he would not care if he ends but denies any suicidal ideation now. He also denies active suicidal ideation, homicidal ideation, hallucinations or delusions. He denies hopeless hopelessness now and is hopeful for the future. He is still very hard on himself and has some low motivation and is unable to start exercising again. He knows that he needs to start exercising again. He is enjoying fact time with his family. Current Psychiatric Medications: [] Lexapro 20 mg p.o. daily (dose increased x1 week) Mental Status Examination: [] The patient is a 31-year-old male who is seen wearing a mask due to the pandemic and is casually dressed and groomed with good hygiene. He has no psychomotor agitation or retardation and his gait is normal. He is cooperative during the visit. Eye contact is good and speech is normal rate and rhythm and fluent with no pressure. Mood is depressed and anxious but improving. Affect is full and normal. Thought process is goal- directed and organized. Thought content: There is still evidence of passive thoughts that he would not care if he . There is no evidence of any passive or active suicidal ideation. There is no evidence of homicidal ideation, hallucinations or delusions. Reality testing is intact. Concentration is decreased. Judgment is intact. Insight is improving. Impulsivity is low. To moderate. Diagnoses: [] 1. Major depressive disorder, recurrent, severe without psychosis 2. Generalized anxiety disorder 3. Primary support and work issues Plan: [] The patient will continue the IOP program at [facility] as the structure, support, education and group therapy will hopefully prevent worsening of the patient's symptoms. He felt safe during the interview and if it anytime he does not feel safe he will let us know or go to the emergency room. The risks, options, possible complications and side effects of medications were again discussed with the patient and he understands and accepts these. The patient is offered Wellbutrin to help with his mood and motivation and energy level. He refuses to add Wellbutrin today and wishes to continue at the higher dose of Lexapro for a while. He agrees to continue to try to start exercising since he used to run track and do cross-country. I will see the patient in follow-up in 2 weeks or as needed.
--- NOTE | 2021-08-24 08:01 | BH.COMM ---
Communication Note - Communication with Client Communication Note: Client missed the week of 08/20/21-08/24/21 due to his daughter being sick and not having childcare help. Client's treatment plan review was this week, but due to client missing IOP, he did not complete the DSM-5. Client plans to attend next week.
--- NOTE | 2021-08-28 09:05 | BH.SGPN.GN ---
Behaviors/Verbalizations/Mental Status: []Client alert and oriented, neatly dressed and groomed. Eye contact good. Motor activity appropriate. Speech rapid and tangential. Affect congruent, mood euthymic. Thoughts linear, logical, no signs of hallucinations or delusions. Reviewed client?s symptom tracker, no risk for suicidal ideation, plan, or intent as of 08/28/22 Client Response/Progress/Benefit: []Client responded well to session, very talkative as client has had to miss several sessions due to his daughter being sick. Client reports feeling excited this morning and shared that despite all the recent stressors everything turned out a win and client feels proud of himself or utilizing his coping skills. Client reflected on his progress, sharing he has been giving himself credit, reminding himself of his strengths, and he has been using good communication to set boundaries and connect with his . Client stated being away from IOP and having all these stressors was like hoahaoism by fire and client reports belief he responded well. Appeared to benefit from reflecting on progress. Will continue IOP tx to promote gains and establish aftercare. Narrative Note: []
--- NOTE | 2021-08-28 10:25 | BH.SGPN.GN ---
Behaviors/Verbalizations/Mental Status: [] Client Response/Progress/Benefit: [] Pt was an active participant in interactive group discussion and experiential activity. Attentive and provided insight and feedback during psychoeducation on the role and types of supports. Group members were able to identify types of healthy support which included; family, friends, medications, pets, professionals, and healthy hobbies. Also able to identify the difference between healthy and unhealthy support. Listed that healthy support is; non-judgemental, understanding, challenges us, can keep us in check, motivates us, and gives us space when needed. Obstacles that were identified to keep one from seeking or utilizing support included; cognitive distortions, pride, lack of awareness, fear of other's reactions. During experiential activity pt was able to relate and make connections between psychoeducation and the activity. Benefited from increased insight into the benefits of having a balanced support system. Will continue in IOP to prevent decompensation, increase healthy coping, decrease intrusive thoughts, and improve functioning to return to work. Narrative Note: []
--- NOTE | 2021-08-28 11:16 | BH.SGPN.GN ---
Behaviors/Verbalizations/Mental Status: []Client alert and oriented, casually dressed and groomed. Eye contact good. Motor activity appropriate, at times restless AEB bouncing knee. Speech pressured which is trypical for pt baseline. Affect congruent, mood euthymic and anxious. Thoughts linear, logical, no signs of hallucinations or delusions. Client Response/Progress/Benefit: []Client was an active participant throughout AEB contributing to discussion, providing personal examples, and taking notes. Client at times however struggles with monopolizing the discussion which may impede his overall ability to gain additional perspectives from fellow participants. Participated in the group activity highlighting the various barriers to effectively utilizing supports and strategies for improving support. Client provided input during discussion on the types of support our supports can provide (emotional, tangible, affirmational, network/belonging, and instructional) and the group listed examples for all types. Client reports wanting to work on increasing appraisal supports, noting this will help improve self-compassion and reduce self-critical statements he often struggles with. Noted he will feel more confident in his parenting abilities as a result as well. Client plans to improve this support area by continuing with a daily accomplishment log, recognizing and challenging intrusive self-critical thoughts, as well as further improving his boundaries with himself. Client seemed to benefit from identifying the type of support and how this support will aid in promoting overall mental wellness. Will continue IOP tx to further improve mood stability, continue to promote healthy coping and improve anxiety management, as well as prevent decompensation. Narrative Note: []
--- NOTE | 2021-08-28 15:58 | BH.TPR ---
Treatment Plan Review Date of Admission:: 07/26/21 Date of Treatment Plan Review:: 08/28/21 Admitting Diagnoses:: Major depressive disorder, recurrent, severe without psychosis F 33.2; Generalized anxiety disorder Current Diagnoses:: Major depressive disorder, recurrent, severe without psychosis F 33.2; Generalized anxiety disorder Patient's Response to Treatment:: Client has responded well to treatment AEB client?s active engagement in group and his reduction of anxiety and depressive symptoms since admission (53% reduction). Client reports practicing coping skills outside of the group setting and he is consistent with homework. Client has increased self-awareness, gained healthy support, and is working on catching and replacing anxious thought patterns. Client's attendance has been inconsistent due to issues with childcare, but when he attends IOP he is an active participant and is highly engaged. Status of Current Problems and Symptoms: Client's symptoms are resolving AEB by his reduced DSM-5 scores. However, client continues to report mild symptoms of depression and anxiety. Client recently had a significant stressor of his daughter being in the ER overnight. Per client's report, he coped well with it and was able to see it as a push to use my skills. Client continues to struggle with making time for self-care, challenging unrealistic expectations of self, and personalizing other's emotions and stressors. Problem #1 Problem Name:: Depression, anhedonia, and feeling like a burden Status of Goals:: Objective 1- complete with ongoing work encouraged. Client can identify negative thinking patterns and unrealistic expectations of self that reinforce depression. Client has been working on catching the thoughts and reframing them. Client has also been communicating these negative self-talk statements with his and they have challenged these together. Objective 2- complete with ongoing work encouraged. Client?s DSM-5 scores for depression have decreased by 50% since admission. Additionally, thoughts of actually hurting himself have decreased by 100%. Client reports using opposite action, goal setting, and communicating with his supports. Team Recommendations:: Treatment team encourages client to continue working on this goal, specifically focusing on increasing client's physical self-care. Client used to be an avid runner and has not done much exercise over the past several months. Problem #2 Problem Name:: anxiety, excessive worries, and panic Status of Goals:: Objective 1- complete with ongoing work encouraged. Client?s DSM-5 scores for anxiety have decreased by 43% since admission. Additionally, client no longer reports having unpleasant thoughts, urges, or images that repeatedly enter his brain. Client has gained awareness of his negative thinking patterns, triggers, and warning signs. Client applies calming skills and thought challenging. Objective 2- in progress. Client has gained awareness of the various distortions that reinforce his anxiety and perfectionism. Client working on adjusting his expectations and increasing self-confidence in his abilities to combat ruminations. Team Recommendations:: Treatment team encourages client to continue working on this goal to further reduce anxiety and challenge ruminations. Encouraged to continue communicating and challenging unrealistic expectations of self with his and delegating tasks when needed.
--- NOTE | 2021-08-30 09:06 | BH.SGPN.GN ---
Behaviors/Verbalizations/Mental Status: []Eye contact is good. Motor activity is appropriate. Appearance is casual. Speech is Appropriate. Mood is anxious and euthymic. Affect is congruent. Thoughts are linear and logical. No evidence of psychosis. Denies any SI, plan, or intent as of this date. Client Response/Progress/Benefit: []Pt responded well to session AEB pt listening attentively to peers and providing input throughout. Pt reports he is feeling ?confident and excited? this morning. Attributes this to having a discussion with his about actual vs. perceived expectations which has aided in significantly reducing his anxiety levels. Shared he has often struggled with placing more responsibility on himself than was actually necessary or asked of him. Pt went on to shared increased use of positive self-talk, thought challenging, and setting boundaries with himself. Indicates this has been difficult for him but that he is able to see some areas of progress. Reports using these skills helped him to reduce anxiety when attending a family holiday event on Friday. Additionally, notes finding time to begin re-engaging in activities he enjoys such as playing video games at night. Appeared to benefit from supportive group environment as well as reflecting on current progress. Recommended continued IOP tx to promote consistent thought challenging skills, continue to reduce anxiety, and further improve healthy communication with supports. . Narrative Note: []
--- NOTE | 2021-08-30 10:15 | BH.SGPN.GN ---
Behaviors/Verbalizations/Mental Status: []Client alert and oriented, neatly dressed and groomed. Eye contact good. Motor activity appropriate. Speech within normal limits. Affect full, mood euthymic. Thoughts linear, logical, no signs of hallucinations or delusions. Client Response/Progress/Benefit: []Pt provided input in group discussion and was actively taking notes and listening throughout. Attentive during psychoeducation and provided insight on definition and benefits of self-care. Group identified self-care benefits to include; improves relationships, increases motivation, helps one be more engaged with others, improves physical health, and can improve productivity. Pt connected with the barriers to practicing self-care and reports unrealistic expectations, lack of time, and guilt have kept pt from practicing self-care. Pt stated he now does a better job at making self-care a priority as he sees the benefits. Pt participated in activity aimed at identifying and challenging common self-care myths. Worked within small group to identify evidence challenging myths. Benefited from group by increasing awareness of benefits to self-care and consequences of neglecting self-care. Will continue in IOP to improve work-related functioning, combat negative thought patterns, and promote gains. Narrative Note: []
--- NOTE | 2021-08-30 11:15 | BH.SGPN.GN ---
Behaviors/Verbalizations/Mental Status: []Client alert and oriented, neatly dressed and groomed. Eye contact good. Motor activity appropriate. Speech within normal limits. Affect full, mood euthymic. Thoughts linear, logical, no signs of hallucinations or delusions. Client Response/Progress/Benefit: []Client engaged participant AEB client taking notes and providing input during discussion. Attentive throughout group discussion on the various areas of self-care and made connections during the activity. Client completed worksheet which identified current self-care practices and what self-care activities client wants to start using. Client selected professional self-care as the area of self-care client would like to improve. Client plans to do this by pursing more meaningful work and exploring interests. Appeared to benefit from completing the self-care evaluation and gaining insights into current self-care practices, as well as identifying areas in which she would like to improve upon. Will continue IOP tx to reinforce healthy coping skills, further improve daily functioning, and prepare client for returning to work. Narrative Note: []
--- NOTE | 2021-08-31 09:09 | BH.COMM ---
Communication Note - Communication with Client Communication Note: Client cancelled his scheduled IOP group and individual sessions today due to issues with childcare. Client was scheduled to meet with this therapist today. Due to cancellations last week and this week, this therapist has not met individually with client for two weeks. Client reported yesterday in group that he is doing better and his mood is more positive. Client plans to discharge next week.
--- NOTE | 2021-09-03 10:21 | BH.COMM ---
Communication Note - Communication with Client Communication Note: Client cancelled his scheduled IOP group and individual sessions today due to issues with childcare. Client still plans to discharge this week on . Therapist unable to meet with client again this week as therapist will be out of the office on . Therapist will continue to reach out to client to establish aftercare.
--- NOTE | 2021-09-06 13:32 | BH.DS ---
Discharge Summary - Demographics Date of Admission:: 07/26/21 Discharge Date: 09/06/21 Presenting Problems at Admission:: Client is a 31-year-old male with a history of MDD and ALLEGRA. Client was referred to [facility] by his PCP due to worsening symptoms of anxiety which was impacting client's functioning. Client had been off work since 06/19/21 with limited progress. At admission, client endorsed significant racing thoughts that were overwhelming and debilitating. Client reported all I think about is what needs to be done. Client reported worsening symptoms within the past four weeks without a specific trigger prior to admission. Additionally, client endorsed increased sleep, poor appetite, low energy, low motivation, anhedonia, isolative behaviors, restlessness, no interest in hobbies, passive thoughts of , and self-deprecation. Client's symptoms were impacting his social, occupational, and familial functioning. Discharge Diagnoses:: Major depressive disorder, recurrent, severe without psychosis F 33.2; Generalized anxiety disorder Reason for Discharge:: Client has accomplished his treatment goals and plans to return to work. Client reports improved functioning and better symptom management. Client no longer meets criteria for [facility] level of care. - Treatment Progress During Treatment & Response: Client responded well to treatment and was engaged during sessions he was in attendance. Client did struggle with getting to [facility], especially within the last two weeks of treatment. For this reason, client did not complete a DSM-5 self-assessment. However, client?s self-report of progress included reduced anxiety, better time-management, increased motivation and energy, improved functioning at home, and feeling more positive. Client often reported using coping skills learned in [facility] outside of IOP setting. Client was receptive during individual sessions and worked towards personal goals. Issues Still to be Addressed:: Client continues to struggle with making time for self-care, challenging unrealistic expectations of self, and personalizing other's emotions and stressors. Recommended ongoing outpatient counseling and medication management. Discharge Recommendations/Instructions:: Client did not show for his last day, so his aftercare options were given to client over the phone. Client was provided with options for outpatient counseling at [facility], [facility], and [facility]. Client can have his PCP manage medications. Client highly encouraged to follow up with outpatient options to promote gains and further improve functioning. Discharge Handout: Complete Discharge Handout with client on aftercare options and continuity of care.
== END 2021-09-06 07:40 | disposition home or self-care (01) ==
LOC: BHIOP 09:00
PROVIDERS: PCP Nurse Practitioner Family; Referring Provider Psychiatry & Neurology Psychiatry; Visit Provider Psychiatry & Neurology Psychiatry
DX: F33.2 Major depressive disorder, recurrent severe without psychotic features (principal); F41.9 Anxiety disorder, unspecified
CPT/HCPCS: S9480; 90853